=== PATIENT | male | born 1960 | race Asian ===

== ENCOUNTER → 2024-09-22 | Emergency (ER) | payer BC ==
[~2024-09-22] VITALS: Ht 175.3 cm; Wt 89.8 kg
[~2024-09-22] MED LIST: IBUPROFEN 400 MG TABLET ONE; KETO10TA2 PO; oxyCODONE/APAP (5/325 MG) 1 UDTAB TABLET ONE
[2024-09-22] MEDS: IBUPROFEN 400 MG TABLET PO ONE (20:46)
[2024-09-22] MEDS: oxyCODONE/APAP (5/325 MG) 1 UDTAB TABLET PO ONE (21:33)
[2024-09-22 21:59] VITALS: BP 138/72; TEMP 98.5; O2SAT 97
== END | disposition home or self-care (01) ==
LOC: ER 20:25
DX: M25.511 Pain in right shoulder (principal)
CPT/HCPCS: 73030-TC